=== PATIENT | female | born 1940 | race Caucasian/White ===

== ENCOUNTER 2021-07-27 12:57 | Outpatient (RCR) | payer MEDICARE | END 2021-08-01 | LOC: PT 12:57 | PROVIDERS: ATTEND Orthopaedic Surgery | DX: Z98.890 Other specified postprocedural states (principal); M25.561 Pain in right knee; M25.661 Stiffness of right knee, not elsewhere classified; M62.81 Muscle weakness (generalized); R26.2 Difficulty in walking, not elsewhere classified | CPT/HCPCS: 97110 ×7; 97162; G0283 ×2 ==

== ENCOUNTER 2021-08-12 12:58 | Outpatient (RCR) | payer MEDICARE | END 2021-08-31 | LOC: PT 12:58 | PROVIDERS: ATTEND Orthopaedic Surgery | DX: Z98.890 Other specified postprocedural states (principal); M25.561 Pain in right knee; M25.661 Stiffness of right knee, not elsewhere classified; M62.81 Muscle weakness (generalized); R26.2 Difficulty in walking, not elsewhere classified | CPT/HCPCS: 97139 ==

== ENCOUNTER 2021-10-28 13:00 | Outpatient (RCR) | payer MEDICARE | END 2021-11-01 | LOC: PT 13:00 | PROVIDERS: ATTEND Physical Medicine & Rehabilitation Sports Medicine | DX: M70.61 Trochanteric bursitis, right hip (principal) ==

== ENCOUNTER 2021-11-16 12:50 | Outpatient (RCR) | payer MEDICARE | END 2021-11-29 | LOC: PT 12:50 | PROVIDERS: ATTEND Physical Medicine & Rehabilitation Sports Medicine | DX: M70.61 Trochanteric bursitis, right hip (principal); M62.81 Muscle weakness (generalized); R26.2 Difficulty in walking, not elsewhere classified; M54.50 Low back pain, unspecified; M25.651 Stiffness of right hip, not elsewhere classified | CPT/HCPCS: 97139 ==